=== PATIENT | female | born 1955 | race Caucasian/White ===

== ENCOUNTER 2021-05-21 20:42 | Emergency (ER) | payer MEDICAID ==
[~2021-05-21] VITALS: Ht 154.9 cm; Wt 79.8 kg
[2021-05-21] MEDS ORDERED: IV NS 0.9% 1,000 ML BAG IV ONE (21:00)
--- NOTE | 2021-05-21 21:20 | NUR ---
BLOOD, URINE SPECIMEN, COVID ANTIGEN SWAB AND MRSA COLLECTED AND SENT TO LAB
--- NOTE | 2021-05-21 21:20 | NUR ---
BLOOD, URINE SPECIMEN, COVID ANTIGEN SWAB AND MRSA COLLECTED AND SENT TO LAB
--- NOTE | 2021-05-21 21:21 | NUR ---
[employer] SECURITY CONSULTANT AT BEDSIDE FOR CXR
--- NOTE | 2021-05-21 21:21 | NUR ---
HULLER OPERATOR AT BEDSIDE FOR CXR
[2021-05-21 21:31] LABS: BASOPHILS % (AUTO) 0.2 % (0.0-2.0); EOSINOPHILS % (AUTO) 0.2 % (0.0-6.0); HEMATOCRIT 33 % (33-45); HEMOGLOBIN 11.8 g/dL (11.5-14.8); LYMPHOCYTES # (AUTO) 1.3 K/uL (0.8-4.8); LYMPHOCYTES % (AUTO) 31.4 % (20.0-44.0); MEAN CORPUSCULAR HGB CONC 36 g/dl (31.0-36.0); MEAN CORPUSCULAR VOLUME 88 fL (82-100); MONOCYTES # (AUTO) 0.3 K/uL (0.1-1.30); NEUTROPHILS # (AUTO) 2.6 K/uL (1.8-8.9); NEUTROPHILS % (AUTO) 62.2 % (43.0-81.0); PLATELET COUNT (AUTO) 151 K/uL (150-450); RED BLOOD CELL COUNT(AUTO) 3.77 MIL/uL (4.0-5.2); WHITE BLOOD COUNT (AUTO) 4.2 K/uL (4.3-11.0)
[2021-05-21 21:35] LABS: BILIRUBIN,URINE NEGATIVE (NEGATIVE); COLOR,URINE YELLOW (YELLOW); LEUKOCYTE ESTERASE ,URINE NEGATIVE (NEGATIVE); NITRITE, URINE NEGATIVE (NEGATIVE); PROTEIN,URINE NEGATIVE (NEGATIVE); UGLUCOSE NEGATIVE (NEGATIVE); UROBILINOGEN,URINE 0.2 EU/dL (0.2)
[2021-05-21 21:49] LABS: BACTERIA,URINE None seen /HPF (None Seen); RBC,URINE 0-2 /HPF (0-2); WBC,URINE 0-2 /HPF (0-3)
[2021-05-21 21:58] LABS: ALANINE AMINOTRANSFERASE 30 U/L (12-78); ALBUMIN 3.3 g/dL (3.4-5.0); ALKALINE PHOSPHATASE 119 U/L (46-116); ASPARTATE AMINOTRANSFERASE 25 U/L (15-37); BILIRUBIN,DIRECT 0.1 mg/dL (0.0-0.2); BILIRUBIN,TOTAL 0.4 mg/dL (0.2-1.0); CARBON DIOXIDE 20 mmol/L (21-32); CHLORIDE 103 mmol/L (98-107); GLUCOSE 102 mg/dL (74-106); SODIUM SERUM 137 mmol/L (136-145); UREA NITROGEN, BLOOD 11 mg/dL (7-18)
--- NOTE | 2021-05-21 21:59 | NUR ---
POTASSIUM 2.6
--- NOTE | 2021-05-21 21:59 | NUR ---
POTASSIUM 2.6
[2021-05-21 22:00] LABS: POTASSIUM 2.6 mmol/L (3.5-5.1)
[2021-05-21] MEDS ORDERED: POTASSIUM CHLORIDE 20 MEQ TAB.PRT.SR PO ONE (22:30)
[2021-05-21] MEDS ORDERED: POTASSIUM CL. PREMIX PERIPHER. 50 ML IV SCH (22:30)
[2021-05-21] MEDS ORDERED: IOHEXOL-350 100 ML VIAL IV ONE (22:34)
[2021-05-21] MEDS ORDERED: IV NS 0.9% 250 ML IV ONE (22:34)
[2021-05-21] MEDS ORDERED: IBUPROFEN 600 MG TABLET ONE (22:42)
[2021-05-21] MEDS ORDERED: ACETAMINOPHEN ES 500 MG TABLET ONE (22:42)
[2021-05-21] MEDS ORDERED: ONDANSETRON HCL/PF 4 MG/2 ML VIAL ONE (22:49)
[2021-05-21] MEDS ORDERED: POTASSIUM CL. PREMIX PERIPHER. 50 ML ONE (22:57)
--- NOTE | 2021-05-21 22:57 | NUR ---
PT DID VOMIT AFTER TAKING TYLENOL. ER PA AWARE, ORDERED ZOFRAN. PT THEN TAKEN TO CT.
--- NOTE | 2021-05-21 22:57 | NUR ---
PT DID VOMIT AFTER TAKING TYLENOL. ER PA AWARE, ORDERED ZOFRAN. PT THEN TAKEN TO CT.
--- NOTE | 2021-05-21 22:58 | NUR ---
PATIENT TO RADIOLOGY FOR CT
--- NOTE | 2021-05-21 22:58 | NUR ---
PATIENT TO RADIOLOGY FOR CT
--- NOTE | 2021-05-21 22:59 | NUR ---
PATIENT'S DAUGHTER YAMILET [phone]
--- NOTE | 2021-05-21 22:59 | NUR ---
PATIENT'S DAUGHTER YAMILET [phone]
[2021-05-21] MEDS ORDERED: IBUPROFEN 600 MG TABLET PO ONE (23:00)
[2021-05-21] MEDS ORDERED: ONDANSETRON HCL/PF - ER 4 MG/2 ML VIAL IV ONE (23:00)
[2021-05-21] MEDS ORDERED: ACETAMINOPHEN ES 500 MG TABLET PO ONE (23:00)
[2021-05-22] MEDS ORDERED: HYDR-4209 PO (00:19)
[2021-05-22] MEDS ORDERED: GUAI120L56 PO (00:19)
[2021-05-22] MEDS ORDERED: POTASSIUM CHLORIDE 20 MEQ TAB.PRT.SR PO ONE ×2 (00:30→00:34)
--- NOTE | 2021-05-22 00:51 | NUR ---
Patient discharged to home in stable condition. Written and verbal after care instructions given. Patient verbalizes understanding of instruction. Patient ambulatory with a steady gait
--- NOTE | 2021-05-22 00:51 | NUR ---
Patient discharged to home in stable condition. Written and verbal after care instructions given. Patient verbalizes understanding of instruction. Patient ambulatory with a steady gait
[2021-05-22 01:03] VITALS: BP 120/63
== END 2021-05-22 00:50 | disposition home or self-care (01) ==
LOC: ER 20:47
DX: U07.1 COVID-19 (principal); E87.6 Hypokalemia; R79.1 Abnormal coagulation profile; R91.8 Other nonspecific abnormal finding of lung field
CPT/HCPCS: 36415; 71045; 71275; 80048; 80076; 81001; 83605; 83735; 84145; 84484; 85025; 85378; 85730; 86140; 87040 ×2; 87081; 87086; 87426; 93005; 96365; 96375; 99291; C9803; J2405; J3480; J7030; J7050; Q9967; A4364